=== PATIENT | female | born 1990 | race Caucasian/White ===

== ENCOUNTER 2024-10-11 05:42 | Emergency (ER) | payer OTHER, SELFPAY ==
[2024-10-11 05:57] VITALS: BP 131/92
[2024-10-11 06:08] VITALS: BMI 23.4
--- NOTE | 2024-10-11 06:25 | ED.GENMED ---
History of Present Illness
General
Chief Complaint: Head Injury
Source: patient
Exam Limitations: none
Time Seen by Provider: 10/11/24 06:09
History of Present Illness
History of Present Illness:
See MDM
Past History
Past History
ED Past Medical History: None
ED Past Surgical History:
Social History
Tobacco: Non-smoker
Alcohol: None
Phy Exam
Physical Exam
Physical Exam:
See MDM
Course
Vital Signs
Initial and Last Documented VS:
Initial Vital Signs
Temp Pulse Resp BP Pulse Ox
97.9 F 70 16 131/92 100
10/11/24 05:57 10/11/24 05:57 10/11/24 05:57 10/11/24 05:57 10/11/24 05:57
Last Documented Vital Signs
Temp Pulse Resp BP Pulse Ox
97.9 F 70 16 131/92 100
10/11/24 05:57 10/11/24 05:57 10/11/24 05:57 10/11/24 05:57 10/11/24 05:57
Procedures
Laceration Closure
Left Posterior Scalp:
Status of Wound: clean
Size of Wound in cm: 3
Description of Wound Edges: sharp
Preparation: cleaned with soap & water
Anesthesia: 1% Lidocaine with epi
Revision/Debridement: routine- no revision
Wound exploration: explored to base- no FB
Type of Closure: single layer closure
Skin Closure Material: 4-0 vicryl
Number of sutures: 3
MDM/Problems Addressed
Differential Diagnosis Includes:
Note:
CHIEF COMPLAINT(S)
Scalp laceration following a fall.
HISTORY OF PRESENT ILLNESS
The patient is a 34-year-old female who presented after experiencing a fall resulting in a laceration to the scalp. Patient states she was trying to to sit in a chair but she missed and she fell backwards hitting her head against a piece of
furniture. The patient described the fall as involving her hitting her head on a rock. The cut is noted to be minor, as the scalp has significant blood flow contributing to the appearance of the injury. The patient has not experienced any nausea or
vomiting post-injury. Relevant concerns regarding potential head trauma were discussed, with reassurance provided that the likelihood of an intracranial bleed or fracture is very low given the patients current stable condition and lack of concerning
symptoms post-incident.
PHYSICAL EXAM
General: Alert, no acute distress.
Skin: Warm, dry.
Head: 3 cm laceration to posterior scalp. No active
Neck: Appears supple, trachea midline.
Eyes, Ears, Nose, Mouth, and Throat: Oral mucosa moist.
Cardiovascular: No signs of cyanosis
Respiratory: Respirations are non-labored.
Abdomen: Non-distended
Musculoskeletal: No deformities
Neurological: No focal neurological deficit observed.
Psychiatric: Cooperative, appropriate mood and affect.
PLAN
The plan involves applying numbing medication and stitching the scalp laceration with dissolvable stitches to avoid the need for removal. This plan was chosen to prevent the necessity of patient follow-up for suture removal, simplifying
post-treatment care.
DIFFERENTIAL DIAGNOSIS
The Differential Diagnosis includes, in no particular order and is not limited to:
1. Scalp laceration
2. Contusion
3. Concussion
4. Intracranial hemorrhage
5. Skull fracture
6. Cervical spine injury
7. Subgaleal hematoma
8. Epidural hematoma
9. Subdural hematoma
10. Migraine or other headache disorders related to trauma
Disposition:
SUMMARY OF ENCOUNTER
The patient, a 34-year-old female, was seen in the emergency department following a fall that resulted in a scalp laceration. The patient sustained the injury after striking her head on a rock. The injury was determined to be minor with controlled
bleeding. The patient denied symptoms such as nausea or vomiting, and concerns regarding potential head trauma were discussed but deemed unlikely based on her current stable condition. A decision was made to manage the laceration by applying numbing
medication and using dissolvable stitches to facilitate healing without necessitating a follow-up for suture removal.
PLAN
Dissolvable stitches were used to close the scalp laceration to avoid the need for a follow-up appointment for removal. Return precautions were discussed with the patient to ensure she knows when to seek further medical attention if needed.
PROCEDURES
Application of numbing medication followed by placement of three dissolvable stitches using 4-0 Vicryl. The patient tolerated the procedure well.
PATIENT EDUCATION AND COUNSELING
The patient was advised on signs to watch for that would warrant immediate medical attention, such as increased headache, dizziness, nausea, or changes in alertness. Return precautions were thoroughly discussed and understood by the patient.
MEDICAL DECISION MAKING
-Complexity of Data Reviewed:
Differential Diagnosis includes:
1. Scalp laceration
2. Contusion
3. Concussion
4. Intracranial hemorrhage
5. Skull fracture
6. Cervical spine injury
7. Subgaleal hematoma
8. Epidural hematoma
9. Subdural hematoma
10. Migraine or other headache disorders related to trauma
-Data:
Category 1: The patient did not have any clinical signs of intracranial hemorrhage, and a CT of the head was considered but ultimately not ordered after shared decision-making with the patient.
-Risk: Consideration of Admission/Observation: Escalation of care including admission/observation was considered given the complexity and risk of the patients presenting complaint, exam findings, and/or their underlying comorbidities. However,
ultimately, I feel the patient is safe for outpatient management with close follow-up. Reasoning: Work-up reassuring, does not reveal any acute life/organ threatening processes, patients symptoms well controlled upon reevaluation, reexamination is
reassuring, vitals are stable, patient agreeable with discharge, reliable for follow-up.
DIAGNOSIS
Scalp laceration, ICD-10 code: S01.02XA.
*Pulse Oximetry
SaO2: 100
Oxygen Mode of Delivery: Room air
Patient hypoxic: no
*Critical Care Note
Total Time (30-74mins, 75-104mins- exclusive of procedures): Not Applicable
ED Attending Note
-
Portions of this chart may have been created with voice recognition software.� Occasional wrong word or��sound alike� substitutions may have occurred due to the inherent limitations of voice recognition software.
Discharge Plan
Departure
Patient Disposition: Home (Routine Discharge)
Date of Disposition: 10/11/24
Time of Disposition: :
Patient with high blood pressure during this ER visit?: No
Discharge Problem:
Laceration of scalp
Instructions: Laceration Repair With Stitches (DC)
Prescriptions:
No Action
No Current Medications
0
Referrals:
UNKNOWN - PT DOES,NOT KNOW [Family Provider]
Activity Restrictions/Additional Instructions:
Please return for any worsening symptoms.
You may return at any time if you have further concerns.
The 3 stitches placed will dissolve on their own.
Thank you for choosing [facility].
Interventions
Interventions:
*Risk Screen - Suicide Last Done: 10/11/24 05:57
*General Assessment Last Done: 10/11/24 06:08
*Neglect/Abuse Screening Last Done: 10/11/24 05:57
*ED- Fall Risk Assessment Last Done: 10/11/24 05:57
*ED COVID-19 Vaccine History Last Done: 10/11/24 05:57
ED- Neurological Assessment Last Done: 10/11/24 06:08
ED-Skin Assessment Last Done: 10/11/24 06:08
Discharge Date and Time
Print Language: CROATIAN
== END 2024-10-11 06:32 | disposition home or self-care (01) ==
LOC: EMR 05:42
PROVIDERS: EMERGENCY PHYSICIAN Student in an Organized Health Care Education/Training Program
DX: S01.01XA Laceration without foreign body of scalp, initial encounter (principal); W01.190A Fall on same level from slipping, tripping and stumbling with subsequent striking against furniture, initial encounter
CPT/HCPCS: 99282; 12002

== ENCOUNTER 2025-02-25 18:57 | Emergency (ER) | payer OTHER, SELFPAY ==
[2025-02-25 18:59] VITALS: BP 154/108
[2025-02-25 19:21] LABS: Hematocrit 36.1 % (37.0-47.0); Hemoglobin 12.8 g/dL (12.0-16.0); Mean Corp Hgb Conc. 35.5 g/dL (33.0-37.0); Mean Corpuscular Volume 83.6 fL (81.0-99.0); Nucleated Red Blood Cells % 0 %; Platelet Count 258 10^3/uL (130-400); Red Cell Dist. Width 12.1 % (11.5-14.5)
[2025-02-25 19:44] LABS: ALT (SGPT) 13 U/L (0-35); AST (SGOT) 20 U/L (14-36); Albumin 4.8 g/dl (3.5-5.0); Alkaline Phosphatase 55 U/L (38-126); Blood Urea Nitrogen 14 mg/dl (7-17); Calcium 9.7 mg/dl (8.4-10.2); Carbon Dioxide 26 mmol/L (22-30); Chloride 103 mmol/L (98-107); Glucose 85 mg/dl (70-99); Potassium 3.8 mmol/L (3.5-5.1); Sodium 138 mmol/L (135-145); Total Protein 7.9 g/dl (6.3-8.2); eGFR > 60.00
[2025-02-25 20:00] LABS: Beta HCG Quantitative 6.49 mIU/ml
[2025-02-25 20:36] VITALS: BMI 24.2
--- NOTE | 2025-02-25 22:33 | ED.GENMED ---
History of Present Illness
General
Chief Complaint: Vaginal Bleeding
Source: patient
Exam Limitations: none
Time Seen by Provider: 02/25/25 21:14
Nursing documentation reviewed up to this point in time: agreed with
History of Present Illness
History of Present Illness:
34 female G2, P1 4 weeks cramping and bleeding passed a clot no pain,
Past History
Past History
ED Past Medical History: None
ED Past Surgical History:
Social History
Tobacco: Non-smoker
Alcohol: None
Drug: None
Personal:
Living: with family
Employment: Employed
Review of Systems
Review of Systems
All Other Systems: Not applicable
ABD/GI: Reports no symptoms; Denies abdominal pain
: Reports bleeding
Phy Exam
Physical Exam
Physical Exam:
Physical Exam
General: no apparent distress, not acutely ill
Neck: No joint
Heart: Regular
Lungs: no acute respiratory distress.
Abdomen: Nontender
Neuro: alert and oriented. no focal neurological deficits
Skin: no rash
Psychiatric: well kept. interactive and cooperative
Extremities: no edema.
Course
Orders/Labs/Results
Orders:
Orders
02/25/25 19:13
Type And Crossmatch [Type+Screen] Urgent
Beta HCG Quantitative Urgent
Is this a screen?: No
Complete Blood Count/With Diff Urgent
Comprehensive Metabolic Panel Urgent
02/25/25 20:25
US W Transvaginal Urgent
Reason For Exam: pvb
Abnormal Lab Results
02/25/25
19:13
Hct 36.1 L %
(37.0-47.0)
02/25/25 19:13
02/25/25 19:13
Vital Signs
Initial and Last Documented VS:
Initial Vital Signs
Temp Pulse Resp BP Pulse Ox
97.9 F 89 20 154/108 100
02/25/25 18:59 02/25/25 18:59 02/25/25 18:59 02/25/25 18:59 02/25/25 18:59
Last Documented Vital Signs
Temp Pulse Resp BP Pulse Ox
97.9 F 89 20 154/108 99
02/25/25 18:59 02/25/25 18:59 02/25/25 18:59 02/25/25 18:59 02/25/25 22:34
MDM/Problems Addressed
Differential Diagnosis Includes:
Missed AB threatened AB ectopic
MDM/Problems Addressed:
Vaginal bleeding
*Pulse Oximetry
SaO2: 99
Oxygen Mode of Delivery: Room air
Patient hypoxic: no
*Critical Care Note
Total Time (30-74mins, 75-104mins- exclusive of procedures): Not Applicable
Update Note
Update Note:
Ultrasound report noted labs noted suspect completed AB
ED Attending Note
-
Portions of this chart may have been created with voice recognition software.� Occasional wrong word or��sound alike� substitutions may have occurred due to the inherent limitations of voice recognition software.
Discharge Plan
Departure
Patient Disposition: Home (Routine Discharge)
Date of Disposition: 02/25/25
Time of Disposition: 22:35
Patient with high blood pressure during this ER visit?: No
Condition: Good
Discharge Problem:
Miscarriage
Instructions: Miscarriage (DC)
Prescriptions:
No Action
No Current Medications
0
Referrals:
Enrique Huddleston MD [Family Provider, Family Practice]
Activity Restrictions/Additional Instructions:
Follow-up with your [facility]
Interventions
Interventions:
*General Assessment Last Done: 02/25/25 18:59
*Neglect/Abuse Screening Last Done: 02/25/25 20:36
*ED COVID-19 Vaccine History Last Done: 02/25/25 20:36
*ED Influenza Vaccine History Last Done: 02/25/25 20:36
[facility] Fall Risk Assessment Tool Last Done: 02/25/25 20:44
*Risk Screen - Suicide (C-SSRS) Last Done: 02/25/25 18:59
ED-Female Genitourinary Assessment Last Done: 02/25/25 20:29
Discharge Date and Time
Print Language: UPPER SORBIAN
== END 2025-02-25 23:12 | disposition home or self-care (01) ==
LOC: EMR 18:57
PROVIDERS: Student in an Organized Health Care Education/Training Program; EMERGENCY PHYSICIAN Emergency Medicine; FAMILY PHYSICIAN Family Medicine
DX: O03.9 Complete or unspecified spontaneous abortion without complication (principal); O34.219 Maternal care for unspecified type scar from previous cesarean delivery; Z3A.01 Less than 8 weeks gestation of pregnancy
CPT/HCPCS: 99284; 76801; 76817; 80053; 84702; 85025; 86850; 86900; 86901